=== PATIENT | female | born 1995 | race American Indian/Alaskan Native ===

== ENCOUNTER 2021-08-12 18:06 | Emergency (ER) | payer OTHER ==
[2021-08-12 22:14] VITALS: BP 108/70
--- NOTE | 2021-08-12 22:49 | XRay Report ---
Left foot 2 views INDICATION: Foot pain FINDINGS: MTP joints and IP joints appear normal. Midfoot alignment appears normal. Calcaneus and alisa us appear normal. Mild diffuse soft tissue swelling. No acute fracture. Signer Name: Federico De La Vega MD Signed: 08/12/2021 10:45 PM Workstation Name: [id number]
[2021-08-13] MEDS ORDERED: traMADol 50 MG TAB PO ONE (02:55)
--- NOTE | 2021-08-13 02:56 | Emergency Department Report ---
ED General Adult HPI - General Chief complaint: Extremity Injury, Lower Stated complaint: INJURY FOOT Time Seen by Provider: 08/13/21 02:51 Source: patient Mode of arrival: Ambulatory Limitations: No Limitations - History of Present Illness Initial comments: Patient is a 26-year-old female who presents for left lateral foot pain x2 weeks. 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 digit. Patient states only partial weightbearing. There is no laceration abrasion or bleeding. There is no obvious deformity. She rates pain at 5/10. Pain is exacerbated by weight bearing. Symptoms. Severity scale (0 -10): 10 - Related Data Previous Rx's Medication Instructions Recorded Last Taken Type Naproxen 500 mg PO TID #30 08/13/21 Unknown Rx Allergies Allergy/AdvReac Type Severity Reaction Status Date / Time No Known Allergies Allergy Unverified 08/12/21 22:08 ED Review of Systems ROS: Stated complaint: INJURY FOOT Other details as noted in HPI Constitutional: denies: chills, fever Eyes: denies: eye pain, eye discharge, vision change ENT: denies: ear pain, throat pain Respiratory: denies: cough, shortness of breath, wheezing Cardiovascular: denies: chest pain, palpitations Endocrine: no symptoms reported Gastrointestinal: denies: abdominal pain, nausea, diarrhea Genitourinary: as per HPI, dysuria. denies: urgency, frequency, hematuria, discharge Musculoskeletal: denies: back pain, joint swelling, arthralgia, myalgia Skin: denies: rash, lesions Neurological: denies: headache, weakness, paresthesias, vertigo Psychiatric: denies: anxiety, depression Hematological/Lymphatic: denies: easy bleeding, easy bruising ED Past Medical Hx - Past Medical History Previous Medical History?: Yes Additional medical history: Digestive issues - Medications Home Medications: Home Medications Medication Instructions Recorded Confirmed Last Taken Type Naproxen 500 mg PO TID #30 08/13/21 Unknown Rx ED Physical Exam - General Limitations: No Limitations General appearance: alert, in no apparent distress - Head Head exam: Present: atraumatic, normocephalic - Eye Eye exam: Present: normal appearance - ENT ENT exam: Present: normal exam, mucous membranes moist, TM's normal bilaterally - Neck Neck exam: Present: normal inspection, full ROM. Absent: tenderness, lymphadenopathy - Respiratory Respiratory exam: Present: normal lung sounds bilaterally. Absent: wheezes, stridor, chest wall tenderness - Cardiovascular Cardiovascular Exam: Present: regular rate, normal rhythm, normal heart sounds. Absent: systolic murmur, diastolic murmur, rubs, gallop - GI/Abdominal GI/Abdominal exam: Present: soft, normal bowel sounds. Absent: distended, tenderness, guarding, rebound, rigid, bruit, hernia - Rectal Rectal exam: Present: deferred - External exam: Present: other (deferred ). Absent: erythema Speculum exam: Present: vaginal discharge - Extremities Exam Extremities exam: Present: normal inspection, full ROM - Back Exam Back exam: Present: normal inspection, full ROM, tenderness - Neurological Exam Neurological exam: Present: alert, CN II-XII intact, normal gait, reflexes normal. Absent: abnormal gait, motor sensory deficit - Psychiatric Psychiatric exam: Present: normal affect, normal mood - Skin Skin exam: Present: warm, dry, intact, normal color. Absent: rash, cyanosis, erythema ED Course Vital Signs 08/12/21 08/13/21 22:13 03:02 Temperature 98.8 F Pulse Rate 72 Respiratory 20 14 Rate Blood Pressure 108/70 [Right] O2 Sat by Pulse 100 Oximetry ED Medical Decision Making - Radiology Data Radiology results: report reviewed, image reviewed Left foot 2 views INDICATION: Foot pain FINDINGS: MTP joints and IP joints appear normal. Midfoot alignment appears normal. Calcaneus and talus appear normal. Mild diffuse soft tissue swelling. No acute fracture. Signer Name: Federico Jade MD Signed: 08/12/2021 10:45 PM Workstation Name: [id number] Transcribed By: CW Dictated By: HUMBERTO JADE MD Electronically Authenticated By: HUMBERTO JADE MD Signed Date/Time: 08/12/212244 DD/ 44 TD/TT: - Medical Decision Making X-rays negative for fracture there is no soft tissue abnormality with mild swelling. Plan Ortho shoe, crutches, follow-up with orthopedics in 2 to 3 days. Patient DC'd to home with prescription for NSAIDs as needed pain. Patient verbalized agreement and understanding with discharge plan. Patient DC'd home in stable condition at this time. Critical care attestation.: If time is entered above; I have spent that time in minutes in the direct care of this critically ill patient, excluding procedure time. ED Disposition Clinical Impression: Sprain of foot, right Qualifiers: Encounter type: initial encounter Qualified Code(s): S93.601A - Unspecified sprain of right foot, initial encounter Disposition: HOME / SELF CARE / HOMELESS Is pt being admited?: No Does the pt Need Aspirin: No Condition: Stable Instructions: Foot Sprain, Elastic Bandage and RICE Therapy Additional Instructions: Take medications as prescribed, use crutches and Ortho shoe as directed. Follow-up with orthopedics and 1 week. Return to emergency department should symptoms worsen Prescriptions: Naproxen 500 mg PO TID #30 Referrals: JULIETH FERNANDES MD [Staff Physician] - 3-5 Days Forms: Work/School Release Form(ED) Time of Disposition: 04:10
== END 2021-08-13 04:26 | disposition home or self-care (01) ==
LOC: ED 18:06
DX: S93.602A Unspecified sprain of left foot, initial encounter (principal); X58.XXXA Exposure to other specified factors, initial encounter; Y93.89 Activity, other specified; Y92.89 Other specified places as the place of occurrence of the external cause; Y99.8 Other external cause status
CPT/HCPCS: 99283